=== PATIENT | male | born 1980 | race Caucasian/White ===

== ENCOUNTER 2018-05-23 13:58 | Emergency (ER) | payer BC, SELFPAY ==
--- NOTE | 2018-05-23 15:17 | RAD ---
CHEST 1 VIEW: Date: 05/23/18 HISTORY: Syncope. FINDINGS: No comparison. The cardiac silhouette is magnified by projection. Pulmonary vasculature is unremarkable. Mediastinum is midline. No lobar consolidation or evidence of pneumothorax. IMPRESSION: No active cardiopulmonary abnormalities are demonstrated. POS: [facility]
== END 2018-05-23 14:56 | disposition home or self-care (01) ==
LOC: ERS 13:58
DX: R55 Syncope and collapse (principal)
CPT/HCPCS: 71045; 93005

== ENCOUNTER 2019-09-26 | Emergency (ER) | payer OTHER ==
[2019-09-26 00:48] LABS: Bilirubin Negative (Negative); Blood, Urine Large (Negative); Glucose, Urine (Dipstick) Negative (Negative); Leukocyte Negative (Negative); Nitrite Negative (Negative); Protein, Urine (Dipstick) Trace mg/dL (Neg-Trace)
[2019-09-26 00:54] LABS: Clarity Hazy (Clear)
[2019-09-26 01:01] LABS: Squamous Epithelial 0-3 HPF (0-3); WBC/HPF 0-3 HPF (0-3)
--- NOTE | 2019-09-26 07:51 | CT ---
PRELIMINARY REPORT/[facility]/EMERGENCY AFTER HOURS PROCEDURE: EXAM: CT Abdomen and Pelvis Without Intravenous Contrast CLINICAL HISTORY: Arnoldo presents to the ED c/o sudden left side back pain onset early 09/25/2019. Pt rep orts he initially dry heaved and then ate a snack and the pain went away. Pt then states the pain returned at 10:30 later that day and reports then pain then radiated to his abd while here. Pt then v omited. Denies fever and issues with urination. No PMHx. States he hasn't taken any medication for his pain. Denies hx of kidney stones. TECHNIQUE: Axial computed tomography images of the abdomen and pelvis without intravenous contrast. Coronal and sagittal reformatted images are provided. CONTRAST: None. COMPARISON: None provided. FINDINGS: LUNG BASES: No basilar airspace consolidation or pleural effusion. LIVER: Unremarkable. GALLBLADDER AND BILE DUCTS: Unremarkable. No calcified stone. No ductal dilation. PANCREAS: Unremarkable. SPLEEN: Unremarkable. ADRENAL GLANDS: Unremarkable. KIDNEYS, URETERS, AND BLADDER: Unremarkable. No hydronephrosis or nephrolithiasis. 3 mm stone within the urinary bladder. Mild left hydroureter. STOMACH AND BOWEL: No obstruction. No wall thickening. No CT evidence of colitis or acute diverticuli tis. APPENDIX: No CT evidence for appendicitis. PERITONEUM: No free fluid. No free air. LYMPH NODES: No lymphadenopathy. REPRODUCTIVE: Unremarkable as visualized. VASCULATURE: No aortic aneurysm. ABDOMINAL WALL AND SOFT TISSUES: Unremarkable. BONES: No fracture or suspicious osseous abnormality. Mild spinal curvature which may be positional. IMPRESSION: 3 mm urinary stone within the bladder with mild left hydroureter consistent with recent passage. ELECTRONICALLY SIGNED BY: Martinez Gilbert M.D. Sep 26, 2019 2:20:57 AM DESKTOP ADMINISTRATOR FINAL REPORT: CT ABDOMEN AND PELVIS WITHOUT CONTRAST: I agree with the report given by Dr. Gilbert of [facility]. Transcribed Date/Time: 09/26/2019 9:12 AM
== END 2019-09-26 02:59 | disposition home or self-care (01) ==
LOC: ERS
DX: N20.0 Calculus of kidney (principal); N13.4 Hydroureter; F41.9 Anxiety disorder, unspecified; F90.9 Attention-deficit hyperactivity disorder, unspecified type
CPT/HCPCS: 74176; 81003; 81015; 96372